=== PATIENT | male | born 1985 | race Caucasian/White ===

== ENCOUNTER 2023-12-19 14:50 | Emergency (ER) | payer MEDICAID ==
[~2023-12-19] VITALS: Ht 170.2 cm; Wt 65.0 kg
[2023-12-19 15:04] VITALS: BP 111/74; PULSE 59; RESP 16; TEMP 98.3; O2SAT 99
[2023-12-19] MEDS: LIDOcaine 1% 30ml preserv. free vial IJ STA (16:00)
[2023-12-19] MEDS ORDERED: CEPH-585 PO (16:27)
== END 2023-12-19 16:56 | disposition home or self-care (01) ==
LOC: ER 14:51
DX: S60.450A Superficial foreign body of right index finger, initial encounter (principal); X58.XXXA Exposure to other specified factors, initial encounter; Y93.89 Activity, other specified; Y92.89 Other specified places as the place of occurrence of the external cause; Y99.8 Other external cause status
CPT/HCPCS: 10120; 99285; A6449